=== PATIENT | female | born 1950 | race Caucasian/White ===

== ENCOUNTER → 2022-01-25 | Emergency (ER) | payer MEDICARE, MEDICAID ==
[~2022-01-25] VITALS: Ht 160 cm; Wt 72.3 kg
[~2022-01-25] MED LIST: AMLO-489; ATOR40TA52; ETOMIDATE (2MG/ML) 20ML VIAL IV ONE; FURO20TA3; HYDR10TA35; IOHEXOL 350 MG/ML 100ML IJ ONE; LEVO125T7; LOSA25TA2; MIDAZOLAM DRIP 50 mg/50mL 50 ML IV SCH; PROPOFOL 100 ML IV SCH; SUCCINYLCHOLINE CHLORIDE 20 MG/ML 10ML VIAL IV ONE
[2022-01-25 16:17] LABS: Basophils # (auto) 0.1 10 ^3/uL (0-0.2); Basophils % (auto) 1.5 % (0.0-2.0); Eosinophils # (auto) 0.1 10 ^3/uL (0-0.8); Eosinophils % (auto) 1.2 % (0.0-7.0); Hematocrit 46.6 % (36.0-46.0); Hemoglobin 15.4 g/dL (12.2-16.2); Lymphocytes # (auto) 1.6 10 ^3/uL (0.4-5.4); Lymphocytes % (auto) 26.1 % (10.0-50.0); Mean Corpuscular Hemoglobin 31.9 pg (28.0-32.0); Mean Corpuscular Hgb Conc. 33.1 g/dL (32.0-36.0); Mean Corpuscular Volume 96.2 fL (80.0-100.0); Monocytes # (auto) 0.5 10 ^3/uL (0-1.3); Neutrophils # (auto) 3.9 10 ^3/uL (1.6-8.6); Neutrophils % (auto) 63.2 % (37.0-80.0); Nucleated Red Blood Cells % 0.2 %; Red Blood Cells 4.84 10^6/uL (4.0-5.20); White Blood Cell 6.2 10^3/uL (4.4-10.8)
[2022-01-25 16:39] LABS: Albumin 3.4 g/dL (3.4-5.0); Anion Gap 16 (5-15); Blood Alcohol < 3.0 mg/dL (0-5); Blood Urea Nitrogen 13 mg/dL (7-18); Calcium 9.1 mg/dL (8.5-10.1); Carbon Dioxide 21 mmol/L (21-32); Chloride 104 mmol/L (98-107); Glucose 113 mg/dL (74-106); Magnesium 2.1 mg/dL (1.6-2.6); Potassium 3.5 mmol/L (3.5-5.1); Sodium 141 mmol/L (136-145)
[2022-01-25 16:43] LABS: Alanine Aminotransferase 23 U/L (13-56); Alkaline Phosphatase 97 U/L (45-117); Aspartate Aminotransferase 21 U/L (15-37); BUN/Creatinine Ratio 9.6; Bilirubin, Total 0.4 mg/dL (0.2-1.0); GFR African American 49 mL/min; GFR Non-African American 41 mL/min; Total Protein 6.9 g/dL (6.4-8.2)
[2022-01-25 17:26] LABS: INR 1.02 (0.9-1.15); Partial Thromboplastin Time 23.3 sec (24.6-33.4)
[2022-01-25 18:08] VITALS: BP 102/51
[2022-01-25 19:07] VITALS: BP 111/51
== END | disposition short-term general hospital (02) ==
LOC: EDUNIT# 15:38 → ER 15:45 → EDBD 15:45
DX: I63.511 Cerebral infarction due to unspecified occlusion or stenosis of right middle cerebral artery (principal); R41.82 Altered mental status, unspecified; I11.0 Hypertensive heart disease with heart failure; R77.8 Other specified abnormalities of plasma proteins; J44.9 Chronic obstructive pulmonary disease, unspecified; I50.9 Heart failure, unspecified; Z90.49 Acquired absence of other specified parts of digestive tract; Z98.890 Other specified postprocedural states; Z88.2 Allergy status to sulfonamides
CPT/HCPCS: 31500; 36415; 36600; 70496; 70498; 71045; 80053; 80320; 82805; 83735; 84484; 85025; 85379; 85610; 85730; 87070; 87205; 93005; 94002; 96365; 96366; 99291; J2250; J2704; Q9967